=== PATIENT | male | born 1930 | race African-American/Black ===

== ENCOUNTER 2016-09-22 09:17 | Inpatient (IN) | payer OTHER ==
[~2016-09-22] VITALS: Ht 182.9 cm; Wt 88.3 kg
[~2016-09-22 09:17] MED LIST: A AND D OINTM42.5 GM TOP; AMLODIPINE BESY10 MG PO; ASPIR 8181 MG PO; ASPIRIN325; CEFTIN 250250 MG/52 PO; CIPRO500 MG PO; FLOMAX0.4 MG PO; NAPROSYN500 MG PO; NEURONTIN 300300 M1 PO; PRINIVIL10 MG; TRAMADOL; TYLENOL325 MG PO; VITAMIN D1000 UNIT; [UNRECOGNIZED DRUG - OTHER]
[2016-09-22 09:18] VITALS: BP 157/93
[2016-09-22 10:38] LABS: ABSOLUTE NEUTROPHILS 2.6 thou/uL (1.4-8.2); BASOPHILS 0.5 % (0.0-2.0); EOSINOPHILS 1.8 % (0.0-3.0); HEMATOCRIT 29.6 % (42.0-52.0); HEMOGLOBIN 9.8 gm/dL (14.0-18.0); LYMPHOCYTES 31.9 % (24.0-44.0); MANUAL DIFF NO; MCH 29.7 pg (26.0-34.0); MCHC 33.3 g/dL (28.0-37.0); MCV 89.1 fL (80.0-100.0); MONOCYTES 6.2 % (1.0-8.0); PLATELET COUNT 317 thou/uL (150-400); POLYS 59.6 % (36.0-66.0); RBC 3.32 mil/uL (4.50-6.00); RDW 15.7 % (10.5-14.5); WBC 4.3 thou/uL (4.0-11.0)
[2016-09-22 10:38] LABS: URINE BILIRUBIN NEGATIVE (Negative); URINE BLOOD 2+ (Negative); URINE COLOR YELLOW; URINE GLUCOSE-RANDOM* NEGATIVE (Negative); URINE KETONES NEGATIVE (Negative); URINE LEUKOCYTES-REFLEX 3+ (Negative); URINE PROTEIN (DIPSTICK) TRACE (Negative); URINE UROBILINOGEN 0.2 E.U./dl (0.2-1.0)
[2016-09-22 10:40] LABS: CALCIUM 9.4 mg/dL (8.5-10.1); CREATININE 0.8 mg/dL (0.7-1.3); POTASSIUM 5.3 mmol/L (3.5-5.1)
[2016-09-22 11:28] LABS: CASTS None Seen /LPF (None Seen); SQUAMOUS None Seen /LPF (0-3); URINE RBC 0-2 Rare /HPF (0-2)
[2016-09-22 11:29] LABS: URINE WBC-REFLEX 0-5 Rare /HPF (0-5)
[2016-09-22 13:52] VITALS: BP 130/64
[2016-09-22 14:02] VITALS: BP 112/66
[2016-09-22 14:48] VITALS: BP 112/66
[2016-09-22 15:47] VITALS: BP 117/63
[2016-09-22 19:30] VITALS: BP 120/60
[2016-09-23 03:45] VITALS: BP 116/60
[2016-09-23 05:59] LABS: CALCIUM 8.7 mg/dL (8.5-10.1); CREATININE 0.8 mg/dL (0.7-1.3)
[2016-09-23 07:21] VITALS: BP 116/76
[2016-09-23 16:11] VITALS: BP 139/77
[2016-09-23 19:30] VITALS: BP 122/72
[2016-09-24 04:00] VITALS: BP 135/77
[2016-09-24 07:42] VITALS: BP 119/48
[2016-09-24] MEDS ORDERED: AMOX TR-K400 MG/5 M PO (09:02)
== END 2016-09-24 13:10 | DRG 689 ==
LOC: ER 09:17 → 3N 12:52 → EROBS 12:52 → 3N 14:35
PROVIDERS: Emergency Medicine; Hospitalist
DX: N39.0 Urinary tract infection, site not specified (principal); G92 Toxic encephalopathy; E46 Unspecified protein-calorie malnutrition; I10 Essential (primary) hypertension; F03.90 Unspecified dementia, unspecified severity, without behavioral disturbance, psychotic disturbance, mood disturbance, and anxiety; E11.42 Type 2 diabetes mellitus with diabetic polyneuropathy; N40.0 Benign prostatic hyperplasia without lower urinary tract symptoms; E86.0 Dehydration; Z79.82 Long term (current) use of aspirin; Z79.899 Other long term (current) drug therapy; Z68.26 Body mass index [BMI] 26.0-26.9, adult; Z88.6 Allergy status to analgesic agent
CPT/HCPCS: 10096